=== PATIENT | male | born 1990 | race Caucasian/White ===

== ENCOUNTER 2018-09-18 10:25 | Emergency (ER) | payer SELFPAY ==
[~2018-09-18] VITALS: Ht 165.1 cm; Wt 72.0 kg
[2018-09-18 11:06] VITALS: BP 133/79
[2018-09-18] MEDS ORDERED: TETRACAINE 0.5% OPHTH DROPS 4ML OP ONE (11:45)
[2018-09-18] MEDS ORDERED: FLUORESCEIN SODIUM 1MG/STRIP OP ONE (11:45)
== END 2018-09-18 12:39 | disposition home or self-care (01) ==
LOC: ER 11:34
DX: S05.01XA Injury of conjunctiva and corneal abrasion without foreign body, right eye, initial encounter (principal); W22.8XXA Striking against or struck by other objects, initial encounter; Y93.89 Activity, other specified; Y92.096 Garden or yard of other non-institutional residence as the place of occurrence of the external cause; Y99.0 Civilian activity done for income or pay
CPT/HCPCS: 99283

== ENCOUNTER 2021-08-26 13:06 | Emergency (ER) | payer MEDICAID ==
[~2021-08-26] VITALS: Ht 162.6 cm; Wt 76.0 kg
[2021-08-26 13:16] VITALS: BP 118/88
[2021-08-26] MEDS ORDERED: DIPHENHYDRAMINE 25MG CAPSULE PO ONE (14:30)
[2021-08-26] MEDS ORDERED: PREDNISONE 20MG TABLET PO ONE (14:30)
[2021-08-26] MEDS ORDERED: DIPH25CA83 MT (14:34)
[2021-08-26] MEDS ORDERED: CALA177S9 TP (14:34)
[2021-08-26] MEDS ORDERED: P20 MT (14:34)
== END 2021-08-26 16:02 | disposition home or self-care (01) ==
LOC: ER 15:56
DX: L23.7 Allergic contact dermatitis due to plants, except food (principal)
CPT/HCPCS: 99283; J7512; Q0163